=== PATIENT | male | born 1995 | race Caucasian/White ===

== ENCOUNTER 2023-08-18 17:47 | Emergency (ER) | payer MEDICAID, OTHER ==
[~2023-08-18] VITALS: Ht 175.3 cm; Wt 64.3 kg
[2023-08-18 17:47] VITALS: BP 129/98; PULSE 110; RESP 18; TEMP 98; O2SAT 98
[2023-08-18] MEDS ORDERED: ALBUAER3 IN (21:45)
== END 2023-08-18 21:54 | disposition home or self-care (01) ==
LOC: ER 17:47
DX: J98.01 Acute bronchospasm (principal); F17.200 Nicotine dependence, unspecified, uncomplicated; F12.10 Cannabis abuse, uncomplicated; Z59.00 Homelessness unspecified
CPT/HCPCS: 71045

== ENCOUNTER 2023-08-18 21:55 | Emergency (ER) | payer MEDICAID ==
[~2023-08-18] VITALS: Ht 175.3 cm; Wt 63.8 kg
[~2023-08-18 21:55] MED LIST: ALBUAER3 IN
[2023-08-18 22:14] VITALS: BP 119/92; PULSE 109; RESP 18; O2SAT 97
== END 2023-08-19 00:40 | disposition left against medical advice (07) ==
LOC: ER 21:55
DX: F99 Mental disorder, not otherwise specified (principal); Z76.0 Encounter for issue of repeat prescription; Z53.21 Procedure and treatment not carried out due to patient leaving prior to being seen by health care provider

== ENCOUNTER 2023-08-19 01:46 | Emergency (ER) | payer MEDICAID ==
[~2023-08-19] VITALS: Ht 175.3 cm; Wt 63.6 kg
[2023-08-19] MEDS: OLANZapine 5 MG TAB PO ONE (02:40)
[2023-08-19 03:04] LABS: Basophils # (auto) 0 10 ^3/uL (0-0.2); Basophils % (auto) 0.3 % (0.0-2.0); Eosinophils # (auto) 0 10 ^3/uL (0-0.8); Hematocrit 42.6 % (41.0-53.0); Hemoglobin 14.2 g/dL (13.5-17.5); Lymphocytes # (auto) 1.5 10 ^3/uL (0.4-5.4); Lymphocytes % (auto) 19.4 % (10.0-50.0); Mean Corpuscular Hgb Conc. 33.4 g/dL (32.0-36.0); Mean Corpuscular Volume 89.8 fL (80.0-100.0); Monocytes # (auto) 0.8 10 ^3/uL (0-1.3); Monocytes % (auto) 10.6 % (0.0-12.0); Neutrophils # (auto) 5.2 10 ^3/uL (1.6-8.6); Neutrophils % (auto) 69.7 % (37.0-80.0); Red Blood Cells 4.74 10^6/uL (4.5-5.90); Red Cell Distribution Width 13.4 % (11.8-14.3); White Blood Cell 7.5 10^3/uL (4.4-10.8)
[2023-08-19 03:14] LABS: Chloride 103 mmol/L (98-107); Potassium 4.2 mmol/L (3.5-5.1); Sodium 137 mmol/L (136-145)
[2023-08-19 03:15] LABS: Anion Gap 6 (5-15); Carbon Dioxide 28 mmol/L (20-30)
[2023-08-19 03:16] LABS: Calcium 9.5 mg/dL (8.7-10.4)
[2023-08-19 03:20] LABS: Glucose 92 mg/dL (74-106)
[2023-08-19 03:21] LABS: BUN/Creatinine Ratio 8.9 (10.0-20.0); Blood Urea Nitrogen 7 mg/dL (9-23)
[2023-08-19 03:23] LABS: Acetaminophen < 2.0 UG/ML (10.0-20.0)
[2023-08-19 03:34] LABS: Amphetamine Screen, Urine Pos (NEGATIVE)
[2023-08-19 03:35] LABS: Barbiturate Scree,Urine Neg (NEGATIVE); Benzodiazephine Screen, Urine Neg (NEGATIVE); Cannabinoid Screen, Urine Pos (NEGATIVE); Cocaine Screen, Urine Neg (NEGATIVE); Opiate Scree,Urine Neg (NEGATIVE); Phencyclidine Screen, Urine Neg (NEGATIVE)
[2023-08-19 03:36] LABS: Blood Alcohol < 3.0 mg/dL (<10)
[2023-08-19 03:43] LABS: Salicylate < 3.0 mg/dL (2.8-20.0)
[2023-08-19 07:50] VITALS: PULSE 90; RESP 16; O2SAT 97
[2023-08-19] MEDS: NICOTINE 7MG/24HR TOPICAL PATCH TD ONE (11:06)
[2023-08-19] MEDS: clonazePAM 0.5 MG TAB PO ONE (18:51)
[2023-08-19] MEDS: clonazePAM 0.5 MG TAB ONE (18:51)
[2023-08-19 21:02] VITALS: PULSE 85; RESP 16; O2SAT 95
[2023-08-20] MEDS: OLANZapine 5 MG TAB PO SCH (10:51)
[2023-08-20] MEDS: LORazepam 0.5 MG TAB PO SCH (10:52)
[2023-08-20] MEDS: NICOTINE 7MG/24HR TOPICAL PATCH TD ONE (10:52)
[2023-08-20 19:36] VITALS: PULSE 74; RESP 14; O2SAT 100
[2023-08-20] MEDS: GABAPENTIN 300 MG CAP PO ONE (20:28)
[2023-08-20] MEDS: ONDANSETRON ODT 4 MG TAB PO ONE (20:29)
[2023-08-20] MEDS: METOCLOPRAMIDE 10 mg/10ml ORAL soln PO ONE (21:34)
[2023-08-21 07:30] VITALS: PULSE 99; RESP 15; O2SAT 95
[2023-08-21] MEDS: NICOTINE 7MG/24HR TOPICAL PATCH TD ONE (11:12)
[2023-08-21 19:55] VITALS: PULSE 101; RESP 18; O2SAT 96
[2023-08-22 11:10] VITALS: RESP 18; O2SAT 98
[2023-08-22 19:00] VITALS: PULSE 90; RESP 16; O2SAT 98
[2023-08-23 09:22] VITALS: BP 119/86; PULSE 94; RESP 18; TEMP 98.3; O2SAT 96
== END 2023-08-23 15:20 | disposition home or self-care (01) ==
LOC: ER 01:46
DX: F29 Unspecified psychosis not due to a substance or known physiological condition (principal); F12.10 Cannabis abuse, uncomplicated; F17.210 Nicotine dependence, cigarettes, uncomplicated; Z59.00 Homelessness unspecified; Z79.899 Other long term (current) drug therapy
CPT/HCPCS: 36415; 80048; 80307; 80320; 80329; 85025; 99285; J8597; Q0162

== ENCOUNTER 2023-08-30 15:48 | Emergency (ER) | payer MEDICAID ==
[~2023-08-30] VITALS: Ht 175.3 cm; Wt 66.2 kg
[2023-08-30 17:46] LABS: Acetaminophen < 2.0 UG/ML (10.0-20.0)
[2023-08-30 17:50] LABS: Salicylate < 3.0 mg/dL (2.8-20.0)
[2023-08-30 19:16] LABS: Basophils # (auto) 0 10 ^3/uL (0-0.2); Eosinophils # (auto) 0.2 10 ^3/uL (0-0.8); Hemoglobin 14.1 g/dL (13.5-17.5); Lymphocytes # (auto) 2.3 10 ^3/uL (0.4-5.4); Lymphocytes % (auto) 19.3 % (10.0-50.0); Mean Corpuscular Hemoglobin 29.3 pg (28.0-32.0); Red Blood Cells 4.82 10^6/uL (4.5-5.90)
[2023-08-30 19:18] LABS: Basophils % (auto) 0.4 % (0.0-2.0); Eosinophils % (auto) 1.3 % (0.0-7.0); Hematocrit 42.9 % (41.0-53.0); Mean Corpuscular Hgb Conc. 32.8 g/dL (32.0-36.0); Mean Corpuscular Volume 89.1 fL (80.0-100.0); Monocytes # (auto) 0.7 10 ^3/uL (0-1.3); Monocytes % (auto) 5.7 % (0.0-12.0); Neutrophils # (auto) 8.9 10 ^3/uL (1.6-8.6); Neutrophils % (auto) 73.3 % (37.0-80.0); Nucleated Red Blood Cells % 0.1 %; White Blood Cell 12.1 10^3/uL (4.4-10.8)
[2023-08-30 19:30] LABS: Alanine Aminotransferase 30 U/L (7-40); Albumin 4.7 g/dL (3.2-4.8); Alkaline Phosphatase 98 U/L (46-116); Anion Gap 7 (5-15); Aspartate Aminotransferase 23 U/L (13-40); Blood Alcohol < 3.0 mg/dL (<10); Calcium 9.4 mg/dL (8.5-10.1); Carbon Dioxide 28 mmol/L (20-30); Chloride 106 mmol/L (98-107); Glucose 125 mg/dL (74-106); Potassium 3.4 mmol/L (3.5-5.1); Sodium 141 mmol/L (136-145)
[2023-08-30 19:31] LABS: Bilirubin, Total 0.2 mg/dL (0.2-1.0); Total Protein 7.2 g/dL (5.7-8.2)
[2023-08-30 19:34] LABS: BUN/Creatinine Ratio 6.2 (10.0-20.0); Blood Urea Nitrogen < 5 mg/dL (9-23)
[2023-08-30 20:01] LABS: Urine WBC None Seen /hpf (0 - 3)
[2023-08-30 20:11] LABS: Amphetamine Screen, Urine Neg (NEGATIVE); Barbiturate Scree,Urine Neg (NEGATIVE)
[2023-08-30 20:12] LABS: Benzodiazephine Screen, Urine Neg (NEGATIVE); Cannabinoid Screen, Urine Neg (NEGATIVE); Cocaine Screen, Urine Neg (NEGATIVE); Opiate Scree,Urine Neg (NEGATIVE); Phencyclidine Screen, Urine Neg (NEGATIVE)
[2023-08-30 20:13] LABS: Urine Bacteria NONE SEEN /hpf (None Seen); Urine Blood Negative /uL (Negative); Urine Clarity Clear (Clear); Urine Mucus FEW (None Seen); Urine Protein, UAD Negative (Negative); Urine Specific Gravity 1.007 (1.001-1.035); Urine Urobilinogen Normal (Negative)
[2023-08-30 20:18] LABS: Urine Color STRAW (Yellow)
[2023-08-30 20:36] LABS: Urine WBC None Seen /hpf (0 - 3)
[2023-08-30 20:41] LABS: Urine Bacteria NONE SEEN /hpf (None Seen); Urine Blood Negative /uL (Negative); Urine Clarity Clear (Clear); Urine Color Colorless (Yellow); Urine Protein, UAD Negative (Negative); Urine Specific Gravity 1.003 (1.001-1.035); Urine Urobilinogen Normal (Negative)
[2023-08-30 20:53] LABS: Amphetamine Screen, Urine Neg (NEGATIVE); Barbiturate Scree,Urine Neg (NEGATIVE); Benzodiazephine Screen, Urine Neg (NEGATIVE); Cocaine Screen, Urine Neg (NEGATIVE); Opiate Scree,Urine Neg (NEGATIVE); Phencyclidine Screen, Urine Neg (NEGATIVE)
[2023-08-30 20:54] LABS: Cannabinoid Screen, Urine Neg (NEGATIVE)
[2023-08-30 22:05] VITALS: BP 135/90; TEMP 97.8
[2023-08-30 22:06] VITALS: PULSE 111; RESP 16; O2SAT 98
== END 2023-08-30 22:26 | disposition home or self-care (01) ==
LOC: ER 15:48
DX: F31.9 Bipolar disorder, unspecified (principal); F20.9 Schizophrenia, unspecified; F17.210 Nicotine dependence, cigarettes, uncomplicated; F12.10 Cannabis abuse, uncomplicated; I10 Essential (primary) hypertension; Z59.00 Homelessness unspecified; Z79.899 Other long term (current) drug therapy
CPT/HCPCS: 36415; 80053; 80307; 80320; 80329; 81001; 85025